=== PATIENT | male | born 1995 | race Caucasian/White ===

== ENCOUNTER 2017-03-11 21:07 | Emergency (ER) | payer OTHER ==
[~2017-03-11] VITALS: Ht 175.3 cm; Wt 82.8 kg
[2017-03-11 21:11] VITALS: TEMP 36.8; Ht 175.3 cm; Wt 82.8 kg
[2017-03-11] MEDS ORDERED: SODIUM CHLORIDE 0.9% 1000ML 1,000 ML IV STA ×2 (21:32→23:41)
[2017-03-11] MEDS ORDERED: LORAZEPAM 2 MG/ML 1 ML VIAL IV STA (21:41)
--- NOTE | 2017-03-11 21:41 | EMERGENCY ROOM VISIT NOTE ---
History First contact with patient: 21:23 Chief Complaint: HEAD PAIN Stated Complaint: TROUBLE SEEING,PRESSURE IN HEAD History of Present Illness The patient is a 21 year old male who presents to the Emergency Room with complaints of pressure behind eyes, blurry vision that started a few hours ago. Patient notes that he took a total of 250mg of benadryl between 5 and 5:30pm tonight, states he was trying to sleep, and often takes 75-100mg of Benadryl to help him sleep. Tonight, he took 125mg, then got back up and forgot he had taken it so took another 125mg about 30 minutes later. He denies taking any other medications or substances, and denies any SI/HI or attempt for self harm. He states he feels slightly dizzy, like his heart is racing, and also has tremors/shakes and his mouth feels very dry. He denies any fevers or chills, chest pain, SOB, syncope, abdominal pain, nausea, vomiting, diarrhea, urinary symptoms, or rash. Review of Systems A complete 10 point review of systems was reviewed with the patient with pertinent positives and negatives as per history of present illness. All else were negative. Past Medical/Surgical History No significant past medical or surgical history. Social History Smoking Status: Never Smoker Alcohol Use: none Drug Use: none Marital Status: single Occupation Status: student Current/Historical Medications Scheduled Diphenhydramine Hcl (Benadryl Allergy), 100 MG PO HS Melatonin (Melatonin Maximum Strengt), 5 MG PO HS Allergies No known allergies Physical Exam Vital Signs Date Time Temp Pulse Resp B/P (MAP) Pulse Ox O2 Delivery O2 Flow Rate FiO2 03/11/17 23:25 124 24 129/7 97 Room Air 03/11/17 21:56 116 03/11/17 21:56 94 Room Air 03/11/17 21:56 95 Room Air 03/11/17 21:11 36.8 137 18 124/66 98 Room Air Physical Exam CONSTITUTIONAL: Pleasant and cooperative. No acute distress. Well appearing and well nourished. HEENT: Normocephalic, atraumatic. Pupils equal, round and reactive to light, 5 mm and sluggish, EOMI, peripheral vision berrios intact. TMs normal. Pharynx normal. Dry mucous membranes. NECK: Supple, full active range of motion without discomfort. RESPIRATORY: Clear to auscultation bilaterally with no wheezing, crackles, rhonchi or stridor. Equal expansion bilaterally. CARDIOVASCULAR: Tachycardic. Regular rhythm with no murmurs, rubs or gallops. Normal peripheral perfusion. No edema. GASTROINTESTINAL: Soft, nontender, nondistended. No palpable masses or HSM. Bowel sounds present in all quadrants. MUSCULOSKELETAL: Full range of motion of all joints without discomfort. INTEGUMENTARY: No rash or other significant dermatologic conditions noted. NEUROLOGIC: Alert and oriented X 4 with flat affect. Cranial nerves II-XII grossly intact. No focal neurologic deficits noted. 5/5 strength, normal sensation in all Medical Decision & Procedures Laboratory Results 03/11/17 22:14 Red Blood Count 5.10, Mean Corpuscular Volume 90.2, Mean Corpuscular Hemoglobin 31.8, Mean Corpuscular Hemoglobin Concent 35.2, Mean Platelet Volume 9.8, Neutrophils (%) (Auto) 76.6, Lymphocytes (%) (Auto) 15.2, Monocytes (%) (Auto) 5.3, Eosinophils (%) (Auto) 1.7, Basophils (%) (Auto) 0.4, Neutrophils # (Auto) 7.53, Lymphocytes # (Auto) 1.50, Monocytes # (Auto) 0.52, Eosinophils # (Auto) 0.17, Basophils # (Auto) 0.04 03/11/17 22:14 Test 03/11/17 22:10 03/11/17 22:14 03/11/17 22:26 Urine Color YELLOW Urine Appearance CLEAR (CLEAR) Urine pH 7.5 (4.5-7.5) Urine Specific [place] 1.015 (1.000-1.030) Urine Protein NEG (NEG) Urine Glucose (UA) NEG (NEG) Urine Ketones NEG (NEG) Urine Occult Blood NEG (NEG) Urine Nitrite NEG (NEG) Urine Bilirubin NEG (NEG) Urine Urobilinogen NEG (NEG) Urine Leukocyte Esterase NEG (NEG) Urine Opiates Screen NEG (NEG) Urine Methadone, Qualitative NEG (NEG) Urine Barbiturates NEG (NEG) Urine Phencyclidine (PCP) Level NEG (NEG) Ur Amphetamine/Methamphetamine NEG (NEG) MDMA (Ecstasy) Screen NEG (NEG) Urine Benzodiazepines Screen NEG (NEG) Urine Cocaine Metabolite NEG (NEG) Urine Marijuana (THC) POS (NEG) White Blood Count 9.84 K/uL (4.8-10.8) Red Blood Count 5.10 M/uL (4.7-6.1) Hemoglobin 16.2 g/dL (14.0-18.0) Hematocrit 46.0 % (42-52) Mean Corpuscular Volume 90.2 fL (80-100) Mean Corpuscular Hemoglobin 31.8 pg (25-34) Mean Corpuscular Hemoglobin Concent 35.2 g/dl (32-36) Platelet Count 215 K/uL (130-400) Mean Platelet Volume 9.8 fL (7.4-10.4) Neutrophils (%) (Auto) 76.6 % Lymphocytes (%) (Auto) 15.2 % Monocytes (%) (Auto) 5.3 % Eosinophils (%) (Auto) 1.7 % Basophils (%) (Auto) 0.4 % Neutrophils # (Auto) 7.53 K/uL (1.4-6.5) Lymphocytes # (Auto) 1.50 K/uL (1.2-3.4) Monocytes # (Auto) 0.52 K/uL (0.11-0.59) Eosinophils # (Auto) 0.17 K/uL (0-0.5) Basophils # (Auto) 0.04 K/uL (0-0.2) RDW Standard Deviation 41.3 fL (36.4-46.3) RDW Coefficient of Variation 12.7 % (11.5-14.5) Immature Granulocyte % (Auto) 0.8 % Immature Granulocyte # (Auto) 0.08 K/uL (0.00-0.02) Anion Gap 8.0 mmol/L (3-11) Est Creatinine Clear Calc Drug Dose 105.4 ml/min Estimated GFR () 109.9 Estimated GFR (Non- 94.8 BUN/Creatinine Ratio 14.0 (10-20) Calcium Level 9.3 mg/dl (8.5-10.1) Total Bilirubin 0.5 mg/dl (0.2-1) Direct Bilirubin < 0.1 mg/dl (0-0.2) Aspartate Amino Transf (AST/SGOT) 23 U/L (15-37) Alanine Aminotransferase (ALT/SGPT) 34 U/L (12-78) Alkaline Phosphatase 62 U/L (45-117) Total Creatine Kinase 184 U/L (39-308) Total Protein 7.6 gm/dl (6.4-8.2) Albumin 4.5 gm/dl (3.4-5.0) Lipase 143 U/L (73-393) Salicylates Level < 1.7 mg/dl (2.8-20) Acetaminophen Level < 2 ug/ml (10-30) Ethyl Alcohol mg/dL < 3.0 mg/dl (0-3) Medications Administered Medications (Trade) Dose Ordered Sig/Patric Route Start Time Stop Time Status Last Admin Dose Admin Sodium Chloride 1,000 ml @ 999 mls/hr Q1H1M STAT IV 03/11/17 21:32 03/11/17 22:32 DC 03/11/17 23:24 999 MLS/HR Lorazepam (Ativan Inj) 1 mg NOW STAT IM 03/11/17 22:19 03/11/17 22:21 DC 03/11/17 22:23 1 MG ECG Indication: tachycardia Rate (beats per minute): 105 Rhythm: sinus tachycardia Findings: T-wave inversion (Lateral) Comparison ECG Date: no prior available Medical Decision CC: Patient presenting with complaint of Benadryl overdose Interpretation of Labs: No leukocytosis, no anemia, no significant electrolyte abnormality, normal renal function, normal liver enzymes. Negative alcohol, negative salicylates, negative Tylenol. UA negative, urine drug screen positive for marijuana. Differential Diagnosis: Includes, but not limited to anticholinergic overdose, other drug overdose, intentional overdose, alcohol intoxication, dehydration, electrolyte abnormality, tachyarrhythmia, among others. Medication Reconciliation: I attest that I have personally reviewed the patient' s current medication list. Vital signs review: I reviewed the patient's vital signs and interpret them as follows: T: Afebrile; BP: Normotensive; HR: Tachycardic; RR: Within normal limits; Pulse Ox: Within normal limits on room air. Blood pressure screening: The patient was found to have normal blood pressure on screening and does not require follow-up for repeat blood pressure check. Summary: Patient was evaluated at bedside, history and physical exam performed. Patient is alert and oriented, neuro exam is intact. Patient is able to read normal text and peripheral vision is intact. Patient is noted to be tachycardic, with dry mouth. EKG reviewed at bedside, sinus tachycardia with narrow complex QRS, flipped T waves in inferior leads, no old EKGs for comparison. Orders were placed at bedside for labs + tox screen, UA, IV fluids, and Ativan. 2140 - spoke on the phone with Sumaya at poison control, she recommends symptomatic treatment with IV fluids and benzodiazepines. Recommends monitoring for 6-8 hours post ingestion, for improvement/resolution of adverse effects. Patient discussed with Dr. Proctor, who agrees with my assessment and plan. Labs reviewed as above, no acute abnormalities. UDS positive for marijuana. Patient reassessed multiple times throughout ED stay, tachycardia is downtrending appropriately, and his feelings of blurry vision and eye pressure are improving. Plan to observe until 1am, if improvement in symptoms may be discharged home, if persistent symptoms would recommend overnight admission for observation. Patient was signed out to Em Connors PA-C at change of shift. Impression Primary Impression: Anticholinergic drug overdose Departure Information Dispostion Other (sign-out to Em Connors PA-C) Condition GOOD Referrals No Doctor, Assigned (PCP) Patient Instructions My [facility] Problem Qualifiers Primary Impression: Anticholinergic drug overdose Encounter type: initial encounter Injury intent: accidental or unintentional Qualified Codes: T44.3X1A - Poisoning by other parasympatholytics [anticholinergics and antimuscarinics] and spasmolytics, accidental (unintentional), initial encounter
[2017-03-11] MEDS ORDERED: MELATAB2 PO (21:43)
[2017-03-11] MEDS ORDERED: DIPH1TAB87 PO (21:43)
[2017-03-11 21:56] VITALS: O2SAT 95
[2017-03-11] MEDS ORDERED: LORAZEPAM 2 MG/ML 1 ML VIAL IM STA (22:19)
[2017-03-11 22:41] LABS: BASO % 0.4 %; BASO ABS # 0.04 K/uL (0-0.2); EOS % 1.7 %; EOS ABS # 0.17 K/uL (0-0.5); HEMOGLOBIN 16.2 g/dL (14.0-18.0); IG# 0.08 K/uL (0.00-0.02); LYMPH % 15.2 %; MEAN CELL VOLUME 90.2 fL (80-100); MEAN CORPUSCULAR HEMOGLOBIN 31.8 pg (25-34); MEAN CORPUSCULAR HGB CONC 35.2 g/dl (32-36); MEAN PLATELET VOLUME 9.8 fL (7.4-10.4); MONO % 5.3 %; MONO ABS # 0.52 K/uL (0.11-0.59); NEUT % 76.6 %; NEUT ABS # 7.53 K/uL (1.4-6.5); PLATELET COUNT 215 K/uL (130-400); RED CELL DISTRIBUTION WIDTH CV 12.7 % (11.5-14.5); RED CELL DISTRIBUTION WIDTH SD 41.3 fL (36.4-46.3); WHITE BLOOD COUNT 9.84 K/uL (4.8-10.8)
[2017-03-11 23:00] LABS: ALBUMIN 4.5 gm/dl (3.4-5.0); ALT/SGPT 34 U/L (12-78); BLOOD UREA NITROGEN 15 mg/dl (7-18); CALCIUM 9.3 mg/dl (8.5-10.1); CARBON DIOXIDE 27 mmol/L (21-32); GLUCOSE 91 mg/dl (70-99); LIPASE 143 U/L (73-393); POTASSIUM 4.5 mmol/L (3.5-5.1); SODIUM 141 mmol/L (136-145)
[2017-03-11 23:03] LABS: ALKALINE PHOSPHATASE 62 U/L (45-117); AST/SGOT 23 U/L (15-37); TOTAL PROTEIN 7.6 gm/dl (6.4-8.2)
[2017-03-12 03:01] VITALS: BP 114/69; PULSE 85; O2SAT 98
--- NOTE | 2017-03-12 03:14 | EMERGENCY ROOM VISIT NOTE ---
ED Visit Note This patient was signed out to me from Sandi Hearn NP, pending Benadryl overdose weaning off and reevaluation in stable condition. Patient states he has problems with insomnia. He's been taking Benadryl for quite some time. He accidentally took too much tonight. Patient was observed for 6 hours with no reemergence of tachycardia, headache or vision problems. Patient was able to ambulate without difficulties. He was counseled on proper sleep hygiene and advised to avoid Benadryl for sleep aid and only use this for allergic reactions. He was informed of this being habit forming. He is advised to see his family care for further evaluation and treatment for his ongoing insomnia. He was advised to avoid stimulants, caffeine, exercise, alcohol use near bedtime. He was advised to try melatonin or sleepy time tea to help out with the sleep aid. He verbalized understanding this. He was discharged home in stable condition with his mother driving. The mother was given a work note for today. #1 antihistamine overdose, accidental #2 insomnia Current/Historical Medications Scheduled Diphenhydramine Hcl (Benadryl Allergy), 100 MG PO HS Melatonin (Melatonin Maximum Strengt), 5 MG PO HS Allergies Coded Allergies: No Known Allergies (Unverified , 03/11/17) Vital Signs Date Time Temp Pulse Resp B/P (MAP) Pulse Ox O2 Delivery O2 Flow Rate FiO2 03/12/17 03:01 85 18 114/69 98 Room Air 03/12/17 02:08 100 03/12/17 01:50 95 18 119/77 97 Room Air 03/12/17 01:13 96 20 119/80 98 Room Air 03/11/17 23:25 124 24 129/76 97 Room Air 03/11/17 21:56 116 03/11/17 21:56 94 Room Air 03/11/17 21:56 95 Room Air 03/11/17 21:11 36.8 137 18 124/66 98 Room Air Laboratory Results 03/11/17 22:14 Red Blood Count 5.10, Mean Corpuscular Volume 90.2, Mean Corpuscular Hemoglobin 31.8, Mean Corpuscular Hemoglobin Concent 35.2, Mean Platelet Volume 9.8, Neutrophils (%) (Auto) 76.6, Lymphocytes (%) (Auto) 15.2, Monocytes (%) (Auto) 5.3, Eosinophils (%) (Auto) 1.7, Basophils (%) (Auto) 0.4, Neutrophils # (Auto) 7.53, Lymphocytes # (Auto) 1.50, Monocytes # (Auto) 0.52, Eosinophils # (Auto) 0.17, Basophils # (Auto) 0.04 03/11/17 22:14 Test 03/11/17 22:10 03/11/17 22:14 03/11/17 22:26 Urine Color YELLOW Urine Appearance CLEAR (CLEAR) Urine pH 7.5 (4.5-7.5) Urine Specific [place] 1.015 (1.000-1.030) Urine Protein NEG (NEG) Urine Glucose (UA) NEG (NEG) Urine Ketones NEG (NEG) Urine Occult Blood NEG (NEG) Urine Nitrite NEG (NEG) Urine Bilirubin NEG (NEG) Urine Urobilinogen NEG (NEG) Urine Leukocyte Esterase NEG (NEG) Urine Opiates Screen NEG (NEG) Urine Methadone, Qualitative NEG (NEG) Urine Barbiturates NEG (NEG) Urine Phencyclidine (PCP) Level NEG (NEG) Ur Amphetamine/Methamphetamine NEG (NEG) MDMA (Ecstasy) Screen NEG (NEG) Urine Benzodiazepines Screen NEG (NEG) Urine Cocaine Metabolite NEG (NEG) Urine Marijuana (THC) POS (NEG) White Blood Count 9.84 K/uL (4.8-10.8) Red Blood Count 5.10 M/uL (4.7-6.1) Hemoglobin 16.2 g/dL (14.0-18.0) Hematocrit 46.0 % (42-52) Mean Corpuscular Volume 90.2 fL (80-100) Mean Corpuscular Hemoglobin 31.8 pg (25-34) Mean Corpuscular Hemoglobin Concent 35.2 g/dl (32-36) Platelet Count 215 K/uL (130-400) Mean Platelet Volume 9.8 fL (7.4-10.4) Neutrophils (%) (Auto) 76.6 % Lymphocytes (%) (Auto) 15.2 % Monocytes (%) (Auto) 5.3 % Eosinophils (%) (Auto) 1.7 % Basophils (%) (Auto) 0.4 % Neutrophils # (Auto) 7.53 K/uL (1.4-6.5) Lymphocytes # (Auto) 1.50 K/uL (1.2-3.4) Monocytes # (Auto) 0.52 K/uL (0.11-0.59) Eosinophils # (Auto) 0.17 K/uL (0-0.5) Basophils # (Auto) 0.04 K/uL (0-0.2) RDW Standard Deviation 41.3 fL (36.4-46.3) RDW Coefficient of Variation 12.7 % (11.5-14.5) Immature Granulocyte % (Auto) 0.8 % Immature Granulocyte # (Auto) 0.08 K/uL (0.00-0.02) Anion Gap 8.0 mmol/L (3-11) Est Creatinine Clear Calc Drug Dose 105.4 ml/min Estimated GFR () 109.9 Estimated GFR (Non- 94.8 BUN/Creatinine Ratio 14.0 (10-20) Calcium Level 9.3 mg/dl (8.5-10.1) Total Bilirubin 0.5 mg/dl (0.2-1) Direct Bilirubin < 0.1 mg/dl (0-0.2) Aspartate Amino Transf (AST/SGOT) 23 U/L (15-37) Alanine Aminotransferase (ALT/SGPT) 34 U/L (12-78) Alkaline Phosphatase 62 U/L (45-117) Total Creatine Kinase 184 U/L (39-308) Total Protein 7.6 gm/dl (6.4-8.2) Albumin 4.5 gm/dl (3.4-5.0) Lipase 143 U/L (73-393) Salicylates Level < 1.7 mg/dl (2.8-20) Acetaminophen Level < 2 ug/ml (10-30) Ethyl Alcohol mg/dL < 3.0 mg/dl (0-3) Medications Administered Medications (Trade) Dose Ordered Sig/Patric Route Start Time Stop Time Status Last Admin Dose Admin Sodium Chloride 1,000 ml @ 999 mls/hr Q1H1M STAT IV 03/11/17 21:32 03/11/17 22:32 DC 03/11/17 23:24 999 MLS/HR Lorazepam (Ativan Inj) 1 mg NOW STAT IM 03/11/17 22:19 03/11/17 22:21 DC 03/11/17 22:23 1 MG Sodium Chloride 1,000 ml @ 999 mls/hr Q1H1M STAT IV 03/11/17 23:41 03/12/17 00:41 DC 03/12/17 00:00 999 MLS/HR Departure Information Impression Primary Impression: Anticholinergic drug overdose Dispostion Home / Self-Care Condition GOOD Forms WORK / SCHOOL INSTRUCTIONS, HOME CARE DOCUMENTATION FORM, IMPORTANT VISIT INFORMATION Patient Instructions My [facility], ED Insomnia Additional Instructions Do not take any more benadryl unless you need this for an allergic reaction. Recommend that you began proper sleep hygiene as discussed. In the future, if you choose to take benadryl, you should not take more than 25- 50mg every 6-8 hours. Drink plenty of fluids over the next 24 hours to help stay hydrated. Follow up with your primary care provider in the next few days. Please return to the emergency department for any worsening symptoms including chest pain, shortness of breath, severe dizziness or passing out, severe headache, seizures, confusion, fevers > 101.5, inability to urinate for more than 12 hours, extreme thirst, or any other concerns.
== END 2017-03-12 03:12 | disposition home or self-care (01) ==
LOC: C.EDB 21:08 → C.EDC 03-12 03:12
DX: T45.0X1A Poisoning by antiallergic and antiemetic drugs, accidental (unintentional), initial encounter (principal)

== ENCOUNTER 2017-03-18 01:54 | Emergency (ER) | payer OTHER ==
[~2017-03-18] VITALS: Ht 175.3 cm; Wt 80.2 kg
[~2017-03-18 01:54] MED LIST: DIPH1TAB87 PO; MELATAB2 PO
[2017-03-18 01:56] VITALS: TEMP 37; Ht 175.3 cm; Wt 80.2 kg
--- NOTE | 2017-03-18 02:41 | EMERGENCY ROOM VISIT NOTE ---
History First contact with patient: 02:23 Chief Complaint: OTHER COMPLAINT Stated Complaint: EYE PRESSURE History of Present Illness The patient is a 21 year old male who presents to the Emergency Room with complaints of "contractions occurring from his neck to his belly" and "pressure in his eyes" He states he took 50mg of Benadryl at approximately 9:30 in addition to 6mg of melatonin, and reports these symptoms started around 11PM. He denies chest pain, shortness of breath, difficulties with gait, focal weakness, and states his symptoms are less severe than when he was here last week for ingesting 250mg of Benadryl. He also notes distorted vision, particularly when reading messages on his cell phone. He denies ingestion of other drugs or alcoholic substances. Review of Systems See HPI for pertinent positives & negatives. A total of 10 systems reviewed and were otherwise negative. Social History Smoking Status: Never Smoker Alcohol Use: none Drug Use: none Marital Status: single Occupation Status: student Current/Historical Medications Scheduled Diphenhydramine Hcl (Benadryl Allergy), 100 MG PO HS Melatonin (Melatonin Maximum Strengt), 5 MG PO HS Physical Exam Vital Signs Date Time Temp Pulse Resp B/P (MAP) Pulse Ox O2 Delivery O2 Flow Rate FiO2 03/18/17 03:32 96 16 127/68 96 Room Air 03/18/17 01:56 37.0 115 18 140/72 97 Room Air Physical Exam HEENT: Head - normocephalic and atraumatic. Conjunctiva is slightly erythematous. Pupils are equal, round, and reactive to light. Extraocular eye muscles are intact and sclera are anicteric. He does report double vision with looking extremely to the left and right. Mouth - moist buccal mucosa. Oropharynx is nonerythematous and there is no tonsillar exudate or edema noted. Heart: Tachycardic. Regular rhythm. There is a normal S1 and S2 with no murmurs , clicks, or gallops appreciated. Lungs: Clear to auscultation bilaterally with no wheezes, rales, or rhonchi. Abdomen: Soft, completely nontender, nondistended, with good bowel sounds. There are no palpable pulsatile masses or hepatosplenomegaly. There is no guarding, rigidity, or rebound noted. Extremities: No evidence of cyanosis, clubbing, or edema. There are easily palpable peripheral pulses. Neuro:The patient is awake and alert, oriented to day, time, and place. Muscle strength is 5/5 in all 4 extremities. 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 Medical Decision & Procedures Laboratory Results Test 03/18/17 03:25 Urine Opiates Screen NEG (NEG) Urine Methadone, Qualitative NEG (NEG) Urine Barbiturates NEG (NEG) Urine Phencyclidine (PCP) Level NEG (NEG) Ur Amphetamine/Methamphetamine NEG (NEG) MDMA (Ecstasy) Screen NEG (NEG) Urine Benzodiazepines Screen NEG (NEG) Urine Cocaine Metabolite NEG (NEG) Urine Marijuana (THC) POS (NEG) Medications Administered Medications (Trade) Dose Ordered Sig/Patric Route Start Time Stop Time Status Last Admin Dose Admin Sodium Chloride 1,000 ml @ 999 mls/hr Q1H1M ONCE IV 03/18/17 03:00 03/18/17 04:00 DC 03/18/17 03:00 999 MLS/HR ECG Indication: toxicologic Rate (beats per minute): 96 Rhythm: normal sinus Change: no significant change ED Course 2:23: The patient was evaluated in room A2. A complete history and physical exam was performed. 2:50: The case was discussing with the attending, Dr. Yi 3:00: 1L IV NS bolus ordered 4:26: Patient was reassessed. He reports he feels 75% better. Retested extra- ocular movements and he denies double vision on lateral gaze. 5:00: The patient was re-evaluated. He states he feels better and is anxious to be discharged. Medical Decision Etiologies such as toxicologic, electrolyte abnormalities, arrhythmias, infection, metabolic abnormalities as well as others were entertained. The patient is a 21 year old male who presents to the Emergency Room with complaints of "contractions occurring from his neck to his belly" and "pressure in his eyes" after taking 25mg of Benadryl and 6mg of melatonin. This is his second visit to the ED with multiple symptoms after taking benadryl. Last time, he ingested 250mg of benadryl. He states this time, his symptoms are much less severe. His neurologic examination was normal, apart from reporting double vision on lateral gaze, which had disappeared upon re-examination. His EKG did not show any evidence of ischemic change or arrhythmias. He was treated with 1L of IV NS and was reassessed frequently. He reports his symptoms had improved and was agreeable to discharge and follow up with his PCP to discuss treatment options for his insomnia. He was counselled on not taking benadryl for sleeping aid. Impression Primary Impression: Anxiety Additional Impression: Insomnia Departure Information Dispostion Home / Self-Care Referrals Sury Buckley M.D. (PCP) Patient Instructions My [facility] Additional Instructions You came to [facility] emergency department due a number of symptoms that occurred after you took Benadryl, including eye pressure, increased heart rate and sensation of contractions occurring in your throat and chest. We checked an EKG , which is an electrical tracing of your heart, and this was normal. We treated you with IV fluids. We strongly recommend you stop taking benadryl to help you sleep. Please try alternatives such as chamomile tea or melatonin. Don't eat heavy meals, drink alcohol or use electronics before bedtime. Please follow up with your doctor to discuss treatment options for your insomnia. Resident Tracking Resident Involvement: Resident Care Provided Care Provided: Adult ED Problem Qualifiers Additional Impression: Insomnia Insomnia type: unspecified Qualified Codes: G47.00 - Insomnia, unspecified
[2017-03-18] MEDS ORDERED: SODIUM CHLORIDE 0.9% 1000ML 1,000 ML IV ONE (03:00)
[2017-03-18 05:05] VITALS: BP 122/86; PULSE 87; O2SAT 99
--- NOTE | 2017-03-18 05:16 | EMERGENCY ROOM VISIT NOTE ---
History Report prepared by Julia: Tiffanie Mcdowell Under the Supervision of: Dr. Mera Yi D.O. First contact with patient: 02:23 Chief Complaint: OTHER COMPLAINT Stated Complaint: EYE PRESSURE History of Present Illness The patient is a 21 year old male who presents to the Emergency Room with complaints of worsening contractions from his chest to his abdomen starting around 2300 yesterday. The patient regularly takes Benadryl and melatonin to sleep. Around 2129, he took 50mg of Benadryl and 6mg of melatonin. His symptoms started around 2300. He reports contractions from his chest to his abdomen which occur every 30 seconds. These contractions have been worsening in severity. He also reports eye pressure and distorted vision. He denies any chest pain, SOB, weakness, or difficulty walking. He denies taking any other drugs or alcohol. Review of EMR with the family practice resident shows that patient recently here and evaluated for more significant Benadryl overdose. Source of History: patient Onset: 2300 Position: other (chest to abdomen) Quality: other (contractions) Timing: worsening Associated Symptoms: No chest pain, No SOB, No weakness Note: Pt reports eye pressure, distorted vision. Review of Systems See HPI for pertinent positives & negatives. A total of 10 systems reviewed and were otherwise negative. Past Medical & Surgical Medical Problems: (1) No significant past medical history Family History Diabetes mellitus FHx: cancer Kidney disease Kidney stones Lung disease Social History Smoking Status: Never Smoker Alcohol Use: occasionally Housing Status: lives with family Occupation Status: employed Current/Historical Medications Scheduled Diphenhydramine Hcl (Benadryl Allergy), 100 MG PO HS Melatonin (Melatonin Maximum Strengt), 5 MG PO HS Allergies Coded Allergies: No Known Allergies (Unverified , 03/18/17) Physical Exam Vital Signs Date Time Temp Pulse Resp B/P (MAP) Pulse Ox O2 Delivery O2 Flow Rate FiO2 03/18/17 05:05 87 16 122/86 99 03/18/17 03:32 96 16 127/68 96 Room Air 03/18/17 01:56 37.0 115 18 140/72 97 Room Air Physical Exam GENERAL: alert, anxious appearing, well nourished, no distress, non-toxic, admits to stress EYE EXAM: normal conjunctiva, PERRL and EOM's grossly intact OROPHARYNX: no exudate, no erythema, lips, buccal mucosa, and tongue normal and mucous membranes are moist NECK: supple, no nuchal rigidity, no adenopathy, non-tender LUNGS: Clear to auscultation. Normal chest wall mechanics HEART: no murmurs, S1 normal and S2 normal ABDOMEN: abdomen soft, non-tender, normo-active bowel sounds, no masses, no rebound or guarding. BACK: Back is symmetrical on inspection and there is no deformity, no midline tenderness, no CVA tenderness. SKIN: no rashes and no bruising UPPER EXTREMITIES: upper extremities are grossly normal. LOWER EXTREMITIES: No pitting edema. NEURO EXAM: Normal sensorium, cranial nerves II-XII grossly intact, normal speech, no gross weakness of arms, no gross weakness of legs. Medical Decision & Procedures Laboratory Results Test 03/18/17 03:25 Urine Opiates Screen NEG (NEG) Urine Methadone, Qualitative NEG (NEG) Urine Barbiturates NEG (NEG) Urine Phencyclidine (PCP) Level NEG (NEG) Ur Amphetamine/Methamphetamine NEG (NEG) MDMA (Ecstasy) Screen NEG (NEG) Urine Benzodiazepines Screen NEG (NEG) Urine Cocaine Metabolite NEG (NEG) Urine Marijuana (THC) POS (NEG) Laboratory results per my review. Medications Administered Medications (Trade) Dose Ordered Sig/Patric Route Start Time Stop Time Status Last Admin Dose Admin Sodium Chloride 1,000 ml @ 999 mls/hr Q1H1M ONCE IV 03/18/17 03:00 03/18/17 04:00 DC 03/18/17 03:00 999 MLS/HR ECG Indication: toxicologic Rate (beats per minute): 96 Rhythm: sinus rhythm Findings: no acute ischemic change, no ectopy, other (normal axis, normal intervals) ED Course 0300: NSS 1000 ml @ 999 mls/hr IV. 0330: The patient was evaluated in room A2. A complete history and physical exam was performed. 0450: Upon reevaluation, the patient is feeling better. I discussed the findings and the treatment plan with the patient. He verbalizes agreement and understanding. He was discharged home. Medical Decision Differential diagnosis: Etiologies such as toxicologic, infection, hypoglycemia, electrolyte abnormalities, cardiac sources, intracerebral event, neurologic, as well as others were entertained. Patient well-appearing here and improved with IV fluids. Patient anxious at bedside, however not tachycardic, no other symptoms to suggest anticholinergic syndrome or toxicity. Discussed with patient at length follow-up with family doctor, discussion of other sleep aids and regimens, avoidance of any additional Benadryl, symptoms to watch and return for, he verbalized understanding was agreeable with plan. Medication Reconcilliation Current Medication List: was personally reviewed by me Blood Pressure Screening Patient's blood pressure: Elevated blood pressure Blood pressure disposition: Elevated BP felt to be situational Impression Primary Impression: Anxiety Additional Impression: Insomnia Scribe Attestation The scribe's documentation has been prepared under my direction and personally reviewed by me in its entirety. I confirm that the note above accurately reflects all work, treatment, procedures, and medical decision making performed by me. Departure Information Dispostion Home / Self-Care Referrals Sury Buckley M.D. (PCP) Forms HOME CARE DOCUMENTATION FORM, IMPORTANT VISIT INFORMATION, WORK / SCHOOL INSTRUCTIONS Patient Instructions My [facility] Additional Instructions You came to [facility] emergency department due a number of symptoms that occurred after you took Benadryl, including eye pressure, increased heart rate and sensation of contractions occurring in your throat and chest. We checked an EKG , which is an electrical tracing of your heart, and this was normal. We treated you with IV fluids. We strongly recommend you stop taking benadryl to help you sleep. Please try alternatives such as chamomile tea or melatonin. Don't eat heavy meals, drink alcohol or use electronics before bedtime. Please follow up with your doctor to discuss treatment options for your insomnia. Problem Qualifiers Additional Impression: Insomnia Insomnia type: unspecified Qualified Codes: G47.00 - Insomnia, unspecified
== END 2017-03-18 05:05 | disposition home or self-care (01) ==
LOC: C.EDB 01:55 → C.EDA 05:05
DX: F41.9 Anxiety disorder, unspecified (principal); G47.00 Insomnia, unspecified; Z83.3 Family history of diabetes mellitus; Z80.9 Family history of malignant neoplasm, unspecified; Z84.1 Family history of disorders of kidney and ureter; Z83.6 Family history of other diseases of the respiratory system